=== PATIENT | female | born 2005 | race Caucasian/White ===

== ENCOUNTER 2024-12-15 13:55 | Outpatient (AMB) | payer BC, SELFPAY ==
--- NOTE | 2024-12-15 14:04 | A.OFFPC_ITS ---
Vital Signs 12/15/24 14:11 Height 5 ft 10 in Weight 194 lb 2 oz BMI 27.9 BP 110/80 Blood Pressure Location Lt brachial Position Sitting Pulse 91 Pulse Source Pulse Oximeter Temp 98.6 F Temp Source Temporal Artery Scan Pulse Oximetry (%) 98 Oxygen Delivery Method Room Air Intake Visit Reasons: New Appt New Patient requesitng an PE Intake Note: Bernie presents in the office today to establish care. Allergies No Known Allergies Allergy (Verified 12/15/24 14:07) Tobacco use date assessed: 12/15/24 Dental Screening Dental Screen Date: 12/15/24 Did you have a dental visit in the last 12 months?: Yes Did you have a dental problem in the last 6 months where you did not have access to dental care?: No Was dental information given to patient?: Patient has dentist HPI HPI Comments History of Present Illness Details 19-year-old female with a past medical h istory of ADHD presents to establish care. She requests a physical exam. She is engaged. She is graduating from [employer] with a degree in music education tomorrow. We received records from Pediatric associates. Last Tdap was 02/16/2014. 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 She is on the oral contraceptive pill. Patient was seen at her [facility] several times since June of 2024 for evaluation of a cough. It started last January when she had a cold and never went away. It is occasionally productive but mostly dry. Endorses wheezing and SOB and cough with exercise. Denies hemoptysis. Nonsmoker. No pets at home. Denies known seasonal allergens. She is exposed to secondhand smoke at her fiancee's parent's house when she is there. Patient says symptoms are better than last summer. No nocturnal awakenings due to respiratory symptoms. Albuterol temporarily alleviated symptoms, but she does not remember where she placed the inhaler that was prescribed by the health clinic. Denies previous diagnosis of asthma or chronic lung disease. ROS: Constitutional: No unexplained weight loss, fever, chills, fatigue or night sw eats. Eyes: No vision changes, blurry vision, double vision, eye pain, eye redness, eye discharge. ENT: No hearing loss, sneezing, congestion, runny nose or sore throat. Respiratory: see HPI Cardiovascular: No chest pain, chest pressure or chest discomfort. No palpitations or pedal edema. Gastrointestinal: No anorexia, nausea, vomiting or diarrhea. No abdominal pain or blood in stool. Genitourinary: No dysuria, hematuria, urinary frequency. Neurologic: No headache, dizziness, syncope, unilateral weakness, ataxia, numbness or tingling in the extremities. Musculoskeletal: No muscle pain, back pain, joint pain or swelling. Hematologic/Lymphatics: No bleeding or bruising. No painful lymph nodes. Skin: No rash or itching. Endocrine: No cold or heat intolerance. No polyuria or polydipsia. Psychiatric: Denies depression. No SI/HI. Physical exam: Constitutional: Alert, in no distress. Head: Normocephalic. Eyes: Pupils are equal, round and reactive to light. Extraocular muscles intact. Ear, Nose and Throat: Canals clear. TMs normal. Normal nasal mucosa. No nasal discharge. No oral lesions. Neck: Supple, Full range of motion. No lymphadenopathy. No palpable thyroid masses. Respiratory: Clear to auscultation. Cardiovascular: S1 S2 regular. No murmurs. Gastrointestinal: Abdomen soft, non-tender, non-distended. Normal bowel sounds. No palpable masses. Neurologic: No focal neurological deficits. Symmetric patellar reflexes. Moves all extremities spontaneously. Sensation intact bilaterally. Skin: No rashes or lesions. Musculoskeletal: No gross deformities. Normal range of motion. Extremities: Warm and well perfused. No clubbing, cyanosis or edema. 3+ peripheral pulses bilaterally. 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 1. Little interest or pleasure in doing things: not at all 2. Feeling down, depressed, or hopeless: several days 3. Trouble falling or staying asleep, or sleeping too much: more than half the days 4. Feeling tired or having little energy: several days 5. Poor appetite or overeating: not at all 6. Feeling bad about yourself - or that you are a failure or have let yourself or your family down: not at all 7. Trouble concentrating on things, such as reading the newspaper or watching television: more than half the days 8. Moving or speaking so slowly that other people could have noticed. Or the opposite - being so fidgety or restless that you have been moving around a lot more than usual: several days 9. Thoughts that you would be better off or of hurting yourself in some way: not at all Total score: 7 Depression Screening Interpretation: Positive Depression Screening Follow-up: Existing condition and Other (Not interested in ADHD meds) Depression Screening Done: Yes 31567 - PHQ-9 Billing: Yes Source: Developed by Drs. Sukhjinder Woods, Nelda Mcneill, Griffin Solis and colleagues, with an educational daniela from [employer]. Thrive Questionnaire Date Thrive assessed: 12/15/24 I am a: Patient What is your living situation today?: I have a steady place to live Within the past 12 months, did the food you bought not last and you didn't have the money to get more?: Never true Within the past 12 months, did you worry whether your food would run out before you got money to buy more?: Never true Do you have trouble paying for medicines?: No Do you have trouble getting transportation to medical appointments?: No Do you have trouble paying your heating and electricity bill?: No Do you have trouble taking care of your child, family member or friend?: No Do you have trouble with day-to-day activities such as bathing, preparing meals, shopping, managing finances, etc.?: No Are you currently unemployed and looking for a job?: No Are you interested in more education?: Yes Please select the resources that you would like help with: None Currently or been in a relationship where the following occur: No concerns reported THRIVE Score: 0 AUDIT C Alcohol Use Questionnaire (AUDIT-C) 1. How often do you have a drink containing alcohol?: 2-4 times a month 2. How many drinks containing alcohol do you have on a typical day when you are drinking?: 1 or 2 3. How often do you have six or more drinks on one occasion?: Less than monthly Total Score: 3 Score Reviewed/Action Taken: No EDIN-7 AMB Questionnaire EDIN-7 Date EDIN - 7 assessed: 12/15/24 Feeling nervous, anxious, or on edge: 2 = More than half the days Not being able to stop or control worryin = Several days Worrying too much about different things: 2 = More than half the days Trouble relaxin = Several days Being so restless that it is hard to sit still: 1 = Several days Becoming easily annoyed or irritable: 2 = More than half the days Feeling afraid as if something awful might happen: 1 = Several days Total EDIN-7 score (0-4 normal; 5-9 mild; 10-14 moderate; 15-21 severe): 10 Source: Developed by Drs. Sukhjinder Woods, Nelda Mcneill, Griffin Solis and colleagues, with an educational daniela from [employer]. EDIN-7 Assessment Billing EDIN-7 Assessment Tool: EDIN-7 Assessment 49522 Physical exam (Primary Care) Vital Signs: Last Vital Signs Temp 98.6 F 12/15/24 14:11 Pulse 91 12/15/24 14:11 BP 110/80 12/15/24 14:11 Pulse Ox 98 12/15/24 14:11 Oxygen Delivery Method Room Air 12/15/24 14:11 BMI result Body Mass Index 27.9 Tobacco/Smoking Status: Tobacco use Status Tobacco use date assessed 12/15/24 12/15/24 14:13 Patient Tobacco Use Status Current everyday Tobacco 12/15/24 14:13 e-Cigarette/Vaping Use Never Used 12/15/24 14:13 PHQ-9: PHQ-9 Score PHQ-9: Total score 7 12/15/24 14:13 Depression Screening Interpretation: Positive Depression Screening Follow-up: Existing condition and Other (Not interested in ADHD meds) Thrive Assessment: Date of Thrive Assessment Date Thrive assessed 12/15/24 12/15/24 14:13 Currently or been in a relationship where the following occur: No concerns reported Coding Level of Care Code New Pt Prev Care 18-39yr(98647 Diagnoses Routine physical examination Z00.00 Cough R05.9 Additional Codes EDIN-7 Assessment Billing - EDIN-7 Assessment Tool: EDIN-7 Assessment 01414 ([id number]) PHQ-9 - 80644 - PHQ-9 Billing: Yes ([id number]) Assessment & Plan Assessment & Plan (1) Routine physical examination: Code(s): Z00.00 - Encounter for general adult medical examination without abnormal findings Category: Medical Plan: Patient is seen today for a routine physical. As part of this visit we reviewed the following issues, which are considered and essential part of preventative health in this age group: - Breast Cancer screening - Annual Bindery Machine Operator exam - Blood pressure screening annually - Cholesterol screening - Osteoporosis prevention including calcium/vitamin D intake, weight bearing exercise & smoking cessation - Nutritional and exercise counseling - Counseling of injury prevention including fire prevention, smoke alarms and seat belt usage - Screening for depression - Prevention of and/or testing for infectious diseases - declined - Education about skin cancer - Recommendations about immunizations - Recommendation of an eye exam - Screening for substance abuse - Genetic cancer risk screening (2) Cough: Code(s): R05.9 - Cough, unspecified Category: Medical Plan: Prescribed albuterol 2 puffs every 4 hours as needed for coughing, wheezing and shortness of breath and 15 minutes prior to physical exertion. Advised patient to keep track of how often she requires it and how often she has symptomatic days. Check chest x-ray and PFT. Consider ICS depending on symptom burden, albuterol requirement and test results. Call if symptoms worsen in the meantime. Plan Follow up in 6 weeks. Orders: Orders Lipid Panel Today E78.5 - Hyperlipidemia, unspecified, Z00.00 - Encounter for general adult medical examination without abnormal findings Complete Blood Count no Diff Today Z00.00 - Encounter for general adult medical examination without abnormal findings Comprehensive Met. Panel Today Z00.00 - Encounter for general adult medical examination without abnormal findings PFT pulmonary function test Today R05.9 - Cough, unspecified XR chest 2V Today R05.9 - Cough, unspecified Medications: New albuterol sulfate 90 mcg/actuation 2 inhalations inhalation .every 4 hours 30 days PRN 8.5 grams 0RF shortness of breath or wheezing or coughing Patient Instructions: Please return for fasting blood work at your earliest convenience. You can have this done at [facility] along with the chest x-ray the day. Please keep try to keep track of the frequency of your asthma symptoms (cough, wheezing, shortness of breath) and how often you need to take albuterol.
[2024-12-15 14:11] VITALS: BP 110/80; PULSE 91; TEMP 37; O2SAT 98; BMI 27.9
== END 2024-12-15 14:34 | disposition home or self-care (01) ==
LOC: HO.HMCFM 13:55
PROVIDERS: Visit Provider Physician Assistant Medical
DX: Z00.00 Encounter for general adult medical examination without abnormal findings (principal); R05.9 Cough, unspecified

== ENCOUNTER → 2024-12-15 13:55 | Outpatient (BNVA) | payer BC, SELFPAY | PROVIDERS: Visit Provider Physician Assistant Medical | DX: Z00.00 Encounter for general adult medical examination without abnormal findings (principal); F90.9 Attention-deficit hyperactivity disorder, unspecified type; R05.9 Cough, unspecified; E78.5 Hyperlipidemia, unspecified | CPT/HCPCS: 96127 ==

== ENCOUNTER 2024-12-20 12:17 | Outpatient (REF) | payer BC, SELFPAY ==
--- NOTE | ~2024-12-20 | XR_ITS ---
EXAMINATION: XR CHEST CLINICAL INFORMATION: R05.9 - Cough, unspecified COMPARISON: None available. TECHNIQUE: 2 views of the chest were obtained. FINDINGS: No consolidation, pleural effusion or pneumothorax. No hyperinflation. Cardiomediastinal silhouette size is normal. Mild S-shaped curvature of the thoracic spine. XR/XR chest 2V IMPRESSION: No acute airspace disease. Negative x-ray. Electronically signed by: Dane Buck MD 12/20/2024 12:46 PM EDT
--- NOTE | 2024-12-20 13:05 | PFT_ITS ---
Flows: FEV1: 101% of predicted at 4.07 L FVC: 114 % of predicted at 5.31 L FEV1/FVC: 77 % Bronchodilator response: Present in small to medium airways only Volumes: Total lung capacity: 107 % of predicted at 6.48 L Residual volume: 82 % of predicted at 1.09 L Slow vital capacity: 118 % of predicted at 5.39 L Expiratory reserve volume: 114 % of predicted at 1.84 L Diffusion capacity: Normal Impression: No obstructive or restrictive ventilatory defect. Bronchodilator response is present in small to medium airways only. MTDD
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
--- OUTSIDE RECORDS SUMMARY | 2024-12-20 13:21 | XMS_ITS | Encounter Summary ---
Author Organization [facility] Address [address] [place], [place] [id number] Phone Care Team Providers Care Director Web Name Role Phone Sukhjinder Nunez MD Primary Care Provider [phone] Encounter Details Date Type Department Care Team (Late st Contact Info) Description 12/20/2017 Conversion Encounter [facility] [address] [place] [address] Sukhjinder Nunez MD [address] [place] [address] Social History Tobacco Use Types Packs/Day Years Used Date Smoking Tobacco: Never Assessed Comments Unknown Sex and Gender Information Value Date Recorded Sex Assigned at Not on file Legal Sex Female 6:13 PM EDT Gender Identity Not on file Sexual Orientation Bisexual 06/03/2021 12 :24 PM EDT documented as of this encounter Plan of Treatment Not on file documented as of this encounter Visit Diagnoses Not on filedocumented in this encounter Care Teams Director Web Relationship Specialty Start Date End Date Sukhjinder Nunez MD [address] [place] [address] PCP - General Pediatrics 03/29/18 09/13/24 documented as of this encounter
[2024-12-20 13:43] VITALS: PULSE 71; O2SAT 99
== END 2024-12-20 12:18 | disposition home or self-care (01) ==
LOC: HO.RESP 12:17
PROVIDERS: PCP Physician Assistant Medical; Visit Provider Physician Assistant Medical
DX: R05.9 Cough, unspecified (principal)
CPT/HCPCS: 71046; 94010; 94640; 94727; 94729

== ENCOUNTER → 2024-12-20 12:23 | Outpatient (BNV) | payer BC, SELFPAY | PROVIDERS: PCP Physician Assistant Medical; Visit Provider Radiology Diagnostic Radiology | DX: R05.9 Cough, unspecified (principal) | CPT/HCPCS: 71046 ==

== ENCOUNTER → 2024-12-20 13:05 | Outpatient (BNV) | payer BC, SELFPAY | PROVIDERS: PCP Physician Assistant Medical; Visit Provider Internal Medicine Pulmonary Disease | DX: R05.9 Cough, unspecified (principal) | CPT/HCPCS: 94060; 94727; 94729 ==

== ENCOUNTER 2024-12-22 11:59 | Outpatient (AMB) | payer BC, SELFPAY ==
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
--- OUTSIDE RECORDS SUMMARY | 2024-12-22 12:25 | XMS_ITS | Encounter Summary ---
Author Organization [facility] Address [address] [place], [place] [id number] Phone Care Team Providers Care Civil Engineer'S Aide Name Role Phone Sukhjinder Nunez MD Primary Care Provider [phone] Encounter Details Date Type Department Care Team (Late st Contact Info) Description 12/20/2017 Conversion [facility]counter [facility] [address] [place] [address] Sukhjinder Nunez MD [address] [place] [address] Social History Tobacco Use Types Packs/Day Years [...] on filedocumented in this encounter Care Teams Civil Engineer'S Aide Relationship Specialty Start Date End Date Sukhjinder Nunez MD [address] [place] [address] PCP - General Pediatrics 03/29/18 09/13/24 documented as of this encounter
--- NOTE | 2024-12-22 12:28 | AM.OFFVISNUR ---
Intake Visit Reasons: nurse visit Tdap Allergies No Known Allergies Allergy (Verified 12/15/24 14:07) Immunizations Boostrix Tdap 2.5 Lf unit-8 mcg-5 Lf/0.5 mL intramuscular syringe Performing Provider: ALICIA Kathleen Performing Location: [facility] Administered by: Ella Allison RN on 12/22/24 12:28 Dose Route Admin Location Dispensed Lot Number Expiration Date [facility] Biometrics Head 0.5 mL IM Right Deltoid 0.5 mL [id number] 03/28/27 [id number] Pipeline VIS Given Date VIS Provided VIS Publication Date 12/22/24 Single Vaccine 21 Eligibility Eligibility Date Funding Source Not [facility] Eligible 12/22/24 Private Assessment & Plan Assessment & Plan Orders: Orders TDaP Immunization Today Z23 - Encounter for immunization Medications: New Boostrix Tdap (diphth,pertus(acell),tetanus) 0.5 mL IM ONCE 0.5 mL 0RF NS Z23 - Encounter for immunization Coding
== END 2024-12-22 12:28 | disposition home or self-care (01) ==
LOC: HO.HMCFM 12:00
PROVIDERS: Visit Provider Physician Assistant Medical
DX: Z23 Encounter for immunization (principal)

== ENCOUNTER → 2024-12-22 11:59 | Outpatient (BNVA) | payer BC, SELFPAY | PROVIDERS: Visit Provider Physician Assistant Medical | DX: Z23 Encounter for immunization (principal) | CPT/HCPCS: 90471; 90715 ==

== ENCOUNTER 2025-01-26 13:40 | Outpatient (AMB) | payer BC, SELFPAY ==
--- NOTE | 2025-01-26 13:44 | MHC.PC.OV ---
Vital Signs 01/26/25 13:47 Height 5 ft 10 in Weight 196 lb 8 oz BMI 28.2 BP 110/72 Blood Pressure Location Rt brachial Position Sitting Pulse 90 Pulse Source Pulse Oximeter Temp 98.2 F Pulse Oximetry (%) 97 Oxygen Delivery Method Room Air Intake Visit Reasons: follow up cough Intake Note: Prudence presents in the office today to follow up on her cough. Allergies No Known Allergies Allergy (Verified 01/26/25 13:45) Tobacco use date assessed: 01/26/25 Dental Screening Dental Screen Date: 01/26/25 Did you have a dental visit in the last 12 months?: Yes Did you have a dental problem in the last 6 months where you did not have access to dental care?: No Was dental information given to patient?: Patient has dentist HPI HPI Comments History of Present Illness Details 19-year-old female with a past medical history of ADHD presents for follow up. Her PFT is suggestive of asthma. Chest x-ray 12/20/2024 normal. She is using her albuterol inhaler 10-15 times per week for symptoms. Cough is triggered by cigarette smoke, physical activity and laughing. No interval ER visits or systemic steroids. Denies nocturnal awakenings. ROS: Constitutional: No unexplained weight loss, fever, chills, fatigue Respiratory: see HPI Cardiovascular: No chest pain, chest pressure or chest discomfort. No palpitations or pedal edema. Physical exam: Constitutional: Alert, in no distress. Respiratory: Clear to auscultation. Cardiovascular: S1 S2 regular. No murmurs. Extremities: Warm and well perfused. No clubbing, cyanosis or edema. 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 [employer] Current occupational exposures/hazards: No Cognitive needs: No Hearing needs: No Vision needs: No Questionnaire Thrive Questionnaire Date Thrive assessed: 12/08/24 I am a: Patient What is your living situation today?: I have a steady place to live Within the past 12 months, did the food you bought not last and you didn't have the money to get more?: Never true Within the past 12 months, did you worry whether your food would run out before you got money to buy more?: Never true Do you have trouble paying for medicines?: No Do you have trouble getting transportation to medical appointments?: No Do you have trouble paying your heating and electricity bill?: No Do you have trouble taking care of your child, family member or friend?: No Do you have trouble with day-to-day activities such as bathing, preparing meals, shopping, managing finances, etc.?: No Are you currently unemployed and looking for a job?: No Are you interested in more education?: Yes Please select the resources that you would like help with: None Currently or been in a relationship where the following occur: No concerns reported THRIVE Score: 0 EDIN-7 AMB Questionnaire EDIN-7 Date EDIN - 7 assessed: 12/15/24 Source: Developed by Drs. Sukhjinder Woods, Nelda Mcneill, Griffin Solis and colleagues, with an educational daniela from [employer]. Physical exam (Primary Care) Vital Signs: Last Vital Signs Temp 98.2 F 01/26/25 13:47 Pulse 90 01/26/25 13:47 BP 110/72 01/26/25 13:47 Pulse Ox 97 01/26/25 13:47 Oxygen Delivery Method Room Air 01/26/25 13:47 BMI result Body Mass Index 28.2 Tobacco/Smoking Status: Tobacco use Status Tobacco use date assessed 01/26/25 01/26/25 13:46 Patient Tobacco Use Status Never used Tobacco 01/26/25 13:46 e-Cigarette/Vaping Use Never Used 01/26/25 13:46 Thrive Assessment: Date of Thrive Assessment Date Thrive assessed 12/08/24 01/26/25 13:46 Currently or been in a relationship where the following occur: No concerns reported Coding Level of Care Code Est Pt Level 3 (57829) Complex EM visit Add On G2211 Diagnoses Asthma, mild persistent J45.30 Assessment & Plan Assessment & Plan (1) Asthma, mild persistent: Code(s): J45.30 - Mild persistent asthma, uncomplicated Category: Medical Plan: Start Arnuity 1 inhalation daily. Gargle and rinse mouth after use. We discussed side effects of inhaled corticosteroids. Recommended supplementation with a multivitamin that contains calcium and vitamin-D. Continue albuterol 2 puffs every 4 hours as needed for cough, wheezing and shortness of breath. Follow up in 6 weeks for re-evaluation. Instructed to call if she does not received the inhaler from the pharmacy. Medications: New fluticasone furoate 100 mcg/actuation (Arnuity Ellipta) 1 inh inhalation Q24H 30 ea 5RF Refilled albuterol sulfate 90 mcg/actuation 2 inhalations inhalation .every 4 hours PRN 8.5 grams 2RF shortness of breath or wheezing or coughing 30 days
[2025-01-26 13:47] VITALS: BP 110/72; PULSE 90; TEMP 36.8; O2SAT 97; BMI 28.2
--- OUTSIDE RECORDS SUMMARY | 2025-01-26 16:32 | XMS_ITS | Continuity of Care Document ---
Author Organization [facility],, GARTH RUSSO MD Address [address] [place] [address] Care Team Providers Care Private Investigator Surveillance Name Role Phone LAWRENCE CARMICHAEL Primary Care Provider Assessment No assessment recorded. Plan of Treatment Reminders Order Date Submit Date Provider Last Modified By Organization Details Last Modified Time Details Appointments None recorded. Lab cytology report, thin prep, smear or scraping, cervical or vaginal 2024 025 [facility] (Centralized Electronic Ordering - All Locations), Patient Can Go To The Location Of Their Choice, [id number] 14:16:18 Referral None recorded. Procedures None recorded. Surgeries None recorded. Imaging None recorded. Medication Orders Aviane 0.1 mg-20 mcg tablet 2024 025 [id number], [address], [place], [address], 11:09:04 Patient TargetsNo targets recorded. Patient Instructions Encounter Date Encounter Id Patient Instructions Last Modified By Organization Details Last Modified Time 01/23/2025 [id number] learning about healthy weight Not available 01/23/2025 11:09:02 They are here fo r annual, doing well on the OCP, elects to continue. 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 _ Note from 2023: They are here for annual, same partner for 9 months, doing well. No vaginal intercourse, no risks for . Still on OCP for regulation of cycles with good results. ___ note from 2022: They are here for annual, last partner was a trans woman, however they are not sexually active at this time. Doing well on this OCP and elects to continue. She appears to be doing well. Monthly self breast exam was taught, and stressed, and is advised to call if she discovers any new mass in the breast. We reviewed the interaction of the OCP with antibiotics. We discussed the need to use a condom during antibiotic use and also for a minimum of three weeks following the use of antibiotics. We discused interactions with some herbal and OTC meds, such as [facility] Possible side effects, and the stated risk of one in 10,000 to develop a blood clot/ DVT/PE were also discussed. Safe sex was stressed. All questions answered, rx to be called in to pharmacy. Not available 01/23/2025 11:09:18 Reason for Referral None Reported. Medical Equipment None Reported. Allergies No known drug allergies Medications Name Sig Start Date Stop Date Status Note LastModified by Organization Details LastModified Time Aviane 0.1 mg-20 mcg tablet Take 1 tablet every day by oral route for 84 days. 2024 active Not Available Not Available Not Avai lable albuterol sulfate HFA 90 mcg/actuati on aerosol inhaler INHALE 2 PUFFS INTO LUNGS EVERY 4 HOURS NEEDED FOR SHORTNESS OF BREATH/WH EEZE/ COUGH FOR 30 DAYS active Not Available Not Available No t Available methylpheni date ER 18 mg tablet,exte nded release 24 hr TAKE 1 TABLET BY MOUTH EVERY DAY IN THE MORNING 01/12 completed Not Available Not Available Not Available Clair Carrasco [facility] spacer FOR USE WITH METERED-D OSE INHALER active Not Available Not Available No t Available Vitals Date Recorded Body weight Body mass index (BMI) Body height Heart rate Systolic blood pressure Diastolic blood pressure Provider Name and Address Organization Details Last Updated DateTime 5 06999.7 g 29.1 kg/m2 175.26 cm 85 /min 120 mm[Hg] 79 mm[Hg] Blanca Mckeon in [facility], 10:41:08 Social History Question Answer Notes LastModified by Organizat ion Details LastModified Time Tobacco Smoking Status Never Smoker Blanca [facility] Hart in [facility], 12/31/2021 13:49:36 How Many Years Have You Consumed Alcohol? 1 Information not available 01/06/2023 What Is Your Level Of Caffeine Consumption? Moderate Information not available 12/31/2021 In The 14 Days Before Symptom Onset, Have You Had Close Contact With A Laboratory-confir med COVID-19 While That Case Was Ill? No Information not available 12/31/2021 In The 14 Days Before Symptom Onset, Have You Had Close Contact With A Person Who Is Under Investigation For COVID-19 While That Person Was Ill? No Information not available 12/31/2021 Have You Been To An Area Known To Be High Risk For COVID-19? No Information not available 12/31/2021 Which Illicit Or Recreational Drugs Have You Used? Edibles Information not available 12/31/2021 What Is The Highest Grade Or Level Of School You Have Completed Or The Highest Degree You Have Received? LC71451-2 Information not available 12/31/2021 Who Is Your Employer? [employer] Information not available 01/23/2025 Are There Any Guns Present In Your Home? No Information not available 12/31/2021 How Many Years Have You Used Illicit Or Recreational Drugs? 1 Information not available 12/31/2021 To Which Gender Do You Self-identify? Gender Queer Information not available 12/31/2021 What Was The Date Of Your Most Recent Tobacco Screening? 01/23/2025 Information not available 01/23/2025 What Is Your Relationship Status? Single Information not available 12/31/2021 Are You Sexually Active? Yes But Not Since Last May Information not available 12/31/2021 How Many Days In The Past Year Have You Consumed 4 Or More Drinks? 0 Information no t available 01/06/2023 Sex: Female Functional Status Question Answer Note LastModified by Organizat ion Details LastModified Time Do you use any illicit or recreational drugs? Yes Information not available 12/31/2021 Do you or have you ever used any other forms of tobacco or nicotine? No Information not available 12/31/2021 What is your level of alcohol consumption? Occasional Information not available 01/06/2023 Are you currently employed? 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 Information not available 01/23/2025 What is your exercise level? Moderate Information not available 12/31/2021 Mental Status Question Answer Note LastModified by Organization D etails LastModified Time Do you feel stressed (tense, restless, nervous, or anxious, or unable to sleep at night)? [id number] Information not available 01/06/2023 Family History Relationship Description Onset Age of this Age Resolved Age Notes LastModified by Organization Details LastModified Time Paternal Grandmother Malignant neoplasm of ovary 45 46 [email or web address] Not available 2021 13:46:41 Paternal Aunt Malignant neoplasm of ovary 48 48 great aunt but father had no sister .. [email or web address] Not available 12/31/2021 13:47:46 Medical History Condition Response Anesthesia complications N High Blood Pressure N Candidate for MyRisk panel N Autoimmune Condition N Lung Disease N Depression N Defects or Inherited Disease N History of Ovarian Cancer N BRCA testing in past N Anxiety Disorder N Arthritis N Infertility N History of Cancer N Endometriosis N Thyroid Problems N Kidney or Bladder Problems N GI Problems N Anemia N History of Breast Cancer N EUSEBIA exposure N Osteopenia N Psychiatric Illness N Diabetes N Headaches or Migraines N Asthma N Hepatitis N Heart Disease N Hypertension N Osteoporosis N Gynecological History Statement/Question Response Flow Moderate Date of LMP 01/09/2025 Frequency of Cycle (Q days) 28 Menses Monthly N Duration of Flow (days) 5 Age at Menarche 10 Current Control Method BCPs Obstetrics History GPAL:G 0 P 0 0 0 0 Immunizations Vaccine Type Date Status Note Provider Nam e and Address Organization Details Recorded Time meningococcal B, OMV 1 completed Blanca Meczywor null, [place] [facility], 01/23/2025 10:42:06 COVID-19, mRNA, LNP-S, PF, 30 mcg/0.3 mL dose 1 completed Blanca Meczywor null, [place] - [facility], 01/23/2025 10:42:06 COVID-19, mRNA, LNP-S, PF, 30 mcg/0.3 mL dose 1 completed Blanca Meczywor null, [place] - [facility], 01/23/2025 10:42:06 COVID-19, mRNA, LNP-S, PF, 30 mcg/0.3 mL dose 1 completed Blanca Meczywor null, [place] - [facility], 01/23/2025 10:42:06 Tdap 4 completed Blanca Meczywor null, [place] - [facility], 01/23/2025 10:42:06 Influenza, split virus, trivalent, preservative 6 completed Blanca Meczywor [place], [place] [facility], 01/23/2025 10:42:06 HPV, quadrivalent 5 completed Blanca Meczywor [place], [place] [facility], 01/23/2025 10:42:06 HPV, quadrivalent 4 completed Blanca Meczywor null, [place] [facility], 01/23/2025 10:42:06 HPV, quadrivalent 4 completed Blanca Meczywor null, [place] [facility], 01/23/2025 10:42:06 Hep A, ped/adol, 2 dose 7 completed Blanca Meczywor null, [place] - [facility], 01/23/2025 10:42:06 Hep A, ped/adol, 2 dose 8 completed Blanca Meczywor [place], [place] [facility], 01/23/2025 10:42:06 meningococcal MCV4P 4 completed Blanca Meczywor [place], [place] [facility], 01/23/2025 10:42:06 meningococcal MCV4P 9 completed Blanca Meczywor null, [place] [facility], 01/23/2025 10:42:06 Influenza, split virus, quadrivalent, PF 8 completed Blanca Meczywor [place] [facility], 01/23/2025 10:42:06 Influenza, split virus, quadrivalent, PF 0 completed Blanca Meczywor [place], [place] - [facility], 01/23/2025 10:42:06 Influenza, split virus, quadrivalent, PF 6 completed Blanca Meczywor null, [place] - [facility], 01/23/2025 10:42:06 Influenza, split virus, quadrivalent, PF 1 completed Blanca Meczywor null, [place] - [facility], 01/23/2025 10:42:06 Past Encounters Encounter ID Performer Location Encounter Start Date Encounter Closed Date Diagnosis/Indication Diagnosis SNOMED-CT Code Diagnosis ICD10 Code Diagnosis Note [id number] MD GARTH Addison MD [address] [facility] [address] [place] [address] 01/23/2025 10:36:51 01/23/2025 15:27:20 Specialized medical examination 55351819 Z01.419 Venereal d isease screening 562736232 Z11.3 Health Concerns Section Related Observation LastModified by Organization Detai ls LastModified Time None Recorded Concern Status LastModified by Organization Details LastModified Time None Recorded Payers Encounter Date Sequence Insurance Name Policy Number Policy Dill Covered Member ID Dill Member ID Guarantor Name 01/23/2025 1 [facility] [id number] Adali Weiss [id number] Prudence Weiss Notes Date Note Type Note Provider Name and Address Organization Details Recorded Time 01/23/2025 text/html They are here fo r annual, doing well on the OCP, elects to continue. 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 _ Note from 2023: They are here for annual, same partner for 9 months, doing well. No vaginal intercourse, no risks for . Still on OCP for regulation of cycles with good results. note from 2022: They are here for annual, last partner was a trans woman, however they are not sexually active at this time. Doing well on this OCP and elects to continue. Garth Russo MD [address] [place] [address],[address], [place], [id number], [place] - [facility], 01/23/2025 11:09:32 OBGyn Episode No OBEpisode recorded.
== END 2025-01-26 14:17 | disposition home or self-care (01) ==
LOC: HO.HMCFM 13:41
PROVIDERS: Visit Provider Physician Assistant Medical
DX: J45.30 Mild persistent asthma, uncomplicated (principal)

== ENCOUNTER → 2025-01-26 13:40 | Outpatient (BNVA) | payer BC, SELFPAY | PROVIDERS: Visit Provider Physician Assistant Medical | DX: Z13.89 Encounter for screening for other disorder (principal) ==

== ENCOUNTER 2025-02-27 13:39 | Outpatient (AMB) | payer BC, SELFPAY ==
--- NOTE | 2025-02-27 13:48 | A.OFFPC_ITS ---
Vital Signs 02/27/25 13:50 Height 5 ft 10 in Weight 202 lb BMI 29.0 BP 120/68 Blood Pressure Location Rt brachial Position Sitting Pulse 81 Pulse Source Pulse Oximeter Temp 98.6 F Temp Source Temporal Artery Scan Pulse Oximetry (%) 98 Oxygen Delivery Method Room Air Intake Visit Reasons: recheck asthma Intake Note: Geovanna presents in the office today for a recheck of her asthma. Allergies No Known Allergies Allergy (Verified 02/27/25 13:49) Tobacco use date assessed: 02/27/25 Dental Screening Dental Screen Date: 02/27/25 Did you have a dental visit in the last 12 months?: Yes Did you have a dental problem in the last 6 months where you did not have access to dental care?: No Was dental information given to patient?: Patient has dentist HPI HPI Comments History of Present Illness Details 19-year-old female with a past medical h istory of asthma and ADHD presenting for an asthma medication check. Her PFT was suggestive of asthma. Chest x-ray 12/20/2024 normal. She initially reported using her albuterol inhaler 10-15 times per week for symptoms. Cough is triggered by cigarette smoke, physical activity and laughing. No interval ER visits or systemic steroids. Taking Pulmicort 90 mcg 1 puff twice daily. Endorses reduced albuterol requirement. She is still using it more than 2 through 3 times per week. Denies nocturnal awakenings. Denies side effects on the medicine. She is taking a multivitamin that contains calcium and vitamin-D. ROS: Constitutional: No unexplained weight loss, fever, chills, fatigue Respiratory: see HPI Cardiovascular: No chest pain, chest pressure or chest discomfort. No palpitations or pedal edema. Physical exam: Constitutional: Alert, in no distress. Respiratory: Clear to auscultation. Mouth/throat: Normal Cardiovascular: S1 S2 regular. No murmurs. Extremities: Warm and well perfused. No clubbing, cyanosis or edema. 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 [employer] Current occupational exposures/hazards: No Cognitive needs: No Hearing needs: No Vision needs: No Questionnaire Thrive Questionnaire Date Thrive assessed: 12/08/24 I am a: Patient What is your living situation today?: I have a steady place to live Within the past 12 months, did the food you bought not last and you didn't have the money to get more?: Never true Within the past 12 months, did you worry whether your food would run out before you got money to buy more?: Never true Do you have trouble paying for medicines?: No Do you have trouble getting transportation to medical appointments?: No Do you have trouble paying your heating and electricity bill?: No Do you have trouble taking care of your child, family member or friend?: No Do you have trouble with day-to-day activities such as bathing, preparing meals, shopping, managing finances, etc.?: No Are you currently unemployed and looking for a job?: No Are you interested in more education?: Yes Please select the resources that you would like help with: None Currently or been in a relationship where the following occur: No concerns reported THRIVE Score: 0 EDIN-7 AMB Questionnaire EDIN-7 Date EDIN - 7 assessed: 12/15/24 Source: Developed by Drs. Sukhjinder Woods, Nelda Mcneill, Griffin Solis and colleagues, with an educational daniela from [employer]. Physical exam (Primary Care) Vital Signs: Last Vital Signs Temp 98.6 F 02/27/25 13:50 Pulse 81 02/27/25 13:50 BP 120/68 02/27/25 13:50 Pulse Ox 98 02/27/25 13:50 Oxygen Delivery Method Room Air 02/27/25 13:50 BMI result Body Mass Index 29.0 Tobacco/Smoking Status: Tobacco use Status Tobacco use date assessed 02/27/25 02/27/25 13:53 Patient Tobacco Use Status Never used Tobacco 02/27/25 13:50 e-Cigarette/Vaping Use Never Used 02/27/25 13:50 Thrive Assessment: Date of Thrive Assessment Date Thrive assessed 12/08/24 02/27/25 13:49 Currently or been in a relationship where the following occur: No concerns reported Coding Level of Care Code Est Pt Level 3 (33972) Complex EM visit Add On G2211 Diagnoses Mild persistent asthma without complication J45.30 Asthma complication type: uncomplicated Assessment & Plan Assessment & Plan (1) Asthma, mild persistent: Code(s): J45.30 - Mild persistent asthma, uncomplicated Category: Medical Qualifiers: Asthma complication type: uncomplicated Qualified Code(s): J45.30 - Mild persistent asthma, uncomplicated Plan: Increase Pulmicort to 180 mcg twice daily. Gargle and rinse mouth after use. We discussed side effects of inhaled corticosteroids. Recommended supplementation with a multivitamin that contains calcium and vitamin-D. Continue albuterol 2 puffs every 4 hours as needed for cough, wheezing and shortness of breath. Follow up in 8 weeks for re-evaluation. Instructed to call if she does not rece ived the inhaler from the pharmacy. Medications: New budesonide 180 mcg/actuation (Pulmicort Flexhaler) 1 inh inhalation BID 1 ea 3RF Discontinued budesonide 90 mcg/actuation (Pulmicort Flexhaler) Discontinued Reason: Doctor's Order 1 inh inhalation Q12H 30 days 1 ea 0RF
[2025-02-27 13:50] VITALS: BP 120/68; PULSE 81; TEMP 37; O2SAT 98; BMI 29.0
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
--- OUTSIDE RECORDS SUMMARY | 2025-02-27 14:20 | XMS_ITS | Data Portability ---
Author Organization [place] - [facility],, GARTH RUSSO MD Address [address] [address] Care Team Providers Care Gerentological Physiotherapist Name Role Phone LAWRENCE CARMICHAEL Primary Care Provider [phone] Assessment No assessment recorded. Plan of Treatment Reminders Order Date Submit Date Provider Last Modified By Organization Details Last Modified Time Details Appointments None recorded. Lab cytology report, thin prep, smear or scraping, cervical or vaginal 2024 025 JESSICA [facility] (Centralized Electronic Ordering - All Locations), Patient Can Go To The Location Of Their Choice, [id number] 5 14:16:18 cytology report, thin prep, smear or scraping, cervical or vaginal 2023 024 JESSICA [facility] (Centralized Electronic Ordering - All Locations), Patient Can Go To The Location Of Their Choice, [address] 4 12:12:40 pap test, thinprep, cervical 2022 023 [email or web address] [facility] (Centralized Electronic Ordering - All Locations), Patient Can Go To The Location Of Their Choice, [address] 3 07:33:40 chlamydia sp, culture, unspecifi ed specimen 2022 023 [email or web address] [facility] (Centralized Electronic Ordering - All Locations), Patient Can Go To The Location Of Their Choice, [address] 3 07:31:27 NG DNA, PCR, genital 2022 023 [email or web address] [facility] (Centralized Electronic Ordering - All Locations), Patient Can Go To The Location Of Their Choice, [id number] 3 07:31:27 pap test, thinprep, cervical 2021 022 [email or web address] [facility], Cytopathology Service, [address] [place] [address], [address], 2 08:23:36 chlamydia sp, culture, unspecifi ed specimen 2021 022 [email or web address] [facility], Cytopathology Service, [address] [place] [address], [address], 2 07:27:52 NG DNA, PCR, genital 2021 022 [email or web address] [facility], Cytopathology Service, [address] [place] [address], [address], 2 07:27:52 Referral None recorded. Procedures None recorded. Surgeries None recorded. Imaging None recorded. Medication Orders Aviane 0.1 mg-20 mcg tablet 2024 025 [facility]armacy #[id number], [address] [place], [address], 5 11:09:04 Sronyx 0.1 mg-20 mcg tablet 2023 024 [facility]/Pharmacy #[id number], [address] [place], [address], 4 11:53:33 Sronyx 0.1 mg-20 mcg tablet 2022 023 [facility]/Pharmacy #0838, [address] [place], [address], 3 13:56:48 Aviane 0.1 mg-20 mcg tablet 2021 022 [facility]/Pharmacy #0838, [address] [place], [address], 2 14:20:15 Patient TargetsNo targets recorded. Patient Instructions Encounter Date Encounter Id Patient Instructions Last Modified By Organization Details Last Modified Time 12/31/2021 [id number] combination cyn h control pills for teens: care instructions Not available 12/31/2021 14:18:53 pelvic exam for teens: care instructions Not available 12/31/2021 14:18:53 learning about healthy weight Not available 12/31/2021 14:18:53 combination cyn h control pills: care instructions Not available 12/31/2021 14:21:39 learning about control: combination pills Not available 12/31/2021 14:21:39 They are here as a new patient for annual exam, never had a pap previously. Not sexually active since last May. Bisexual, gender queer, gender non-nonconforming , though only has experience with males at this time. Gender fluid, pronouns are They/Them. Menses are sometimes every month, sometimes 4 to 6 months apart, since menarche. Desires control. They appears to be doing well. Monthly self breast exam was taught, and stressed, and is advised to call if she discovers any new mass in the breast. We discussed the Thursday start process for the OCP, that the pill will not be effective for the first month of use, and the interaction with antibiotics. We discussed the need to use a condom during antibiotic use and also for a minimum of three weeks following the use of antibiotics. We discused interactions with some herbal and OTC meds, such as [place] Dese[place]'s Wort. Possible side effects, and the stated risk of one in 10,000 to develop a blood clot/ DVT/PE were also discussed. All questions answered, rx to be called in to pharmacy. Not available 12/31/2021 14:19:37 01/06/2023 [id number] learning about healthy weight Not available 01/06/2023 13:56:46 They are here fo r annual, last partner was a trans woman, however they are not sexually active at this time. Doing well on this OCP and elects to continue. note from 2021: They are here as a new patient for annual exam, never had a pap previously. Not sexually active since last May. Bisexual, gender queer, gender non-nonconforming , though only has experience with males at this time. Gender fluid, pronouns are They/Them. Menses are sometimes every month, sometimes 4 to 6 months apart, since menarche. Desires control. We reviewed the interaction of the OCP [...] rx to be called in to pharmacy. She appears to be doing well. Monthly self breast exam was taught, and stressed, and is advised to call if she discovers any new mass in the breast. Not available 01/06/2023 13:57:09 01/13/2024 [id number] learning about healthy weight Not available 01/13/2024 11:52:25 They are here for annual, same partner for 9 months, doing well. No vaginal intercourse, no risks for . Still on OCP for regulation of cycles with good results. ___ note from 2022: They are here for annual, last partner was a trans woman, however they are not sexually active at this time. Doing well on this OCP and elects to continue. _ She appears to be doing well. . Monthly self breast exam was taught, and [...] be called in to pharmacy. Not available 01/13/2024 11:53:46 01/23/2025 [id number] learning about healthy weight Not available 01/23/2025 11:09:02 They are here fo r annual, doing well on the OCP, elects to continue. 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 Results Created Date Observation Date Name Description Value Unit Range Abnormal Flag Note LastModifiedBy Organization Detail LastModifiedTime 01/01/20 22 12/31/2021 GENER AL5CA SE [id number] Chlam ydia: NEGAT LACIE N. cindy auguste e: NEGAT LACIE Compl eted on 01-02 CLINI YARIEL INFOR MATSTEPHANIE N: Z11.3 SOURC E: ThinP rep Pap for CT/GC Gross Descr iptio n: ThinP rep Vial Recei catie. Physi abbens AYDEN GARCÍA M.D./ [phone] Not Available [facility], Cytopathology Service [address] [place], [address], 01/03/2022 09:22:50 01/01/20 22 12/31/2021 PAP1C ASE [id number] ThinP rep Pap, Image d: NEGAT LACIE FOR SQUAM OUS INTRA EPITH ELIAL LESIO N AND MALIG CALLIE . Mark Coyne r , CT( CP) (Case elect kelvin denise vamsi d 01 10 2022) ADEQU ACY: Satis facto ry Endoc ervic al/tr ansfo rmati on zone compo nent prese nt. SOURC E: ThinP rep Pap HPV IF Ascus : Refle x 16 and 18, Cervi yariel, Image d CLINI YARIEL INFOR MATIO N: HPV If Diagn osis of ASCUS . first pap, Z12.4 Not Available [facility], Cytopathology Service [address] [place], [address], 01/10/2022 13:31:17 01/07/[address]/GC AMPLI FIED PROBE C.trach.amp probe thin prep (neg) NEGAT LACIE No Chlam ydia Trach omati s RNA detec hector in this patie nt's sampl e (REFE RENCE RANGE /NORM AL VALUE : NOT DETEC HECTOR) Note: This test uses trans cript ion- media hector ampli ficat ion metho d to detec t rRNA from C. Trach omati s Not Available [facility] (Centralized Electronic Ordering - All Locations) Patient Can Go To The Location Of Their Choice, [id number] 2023 15:04:03 01/07/[address]/GC AMPLI FIED PROBE GC amplified probe thin prep (neg) NEGAT LACIE No Neiss eria Gonor rhoea e RNA detec hector in this patie nt's sampl e (REFE RENCE RANGE /NORM AL VALUE : NOT DETEC HECTOR) NOTE: This test uses trans cript ion-m ediat ed ampli ficat ion metho d to detec t rRNA from N.Vic orrho eae. A negat lacie resul t does not precl ude infec tion. In the case of a negat lacie urine resul t, testi ng of an endoc ervic al(fe male) or ureth ral (male ) speci men is recom adrian d if there is high clini yariel suspi cion of infec tion. Due to very high sensi tivit y of Nucle ic Acid Ampli ficat ion Test, false posit lacie resul ts may occur . There fore, speci men handl ing is extre todd impor tant. In patie nts in whom the disea se is unlik jorge, addit ional sampl e for testi ng shoul d be consi dered after an initi al posit lacie resul t. The perfo rmanc e marina cteri stics of this test have not been evalu ated in child remigio. The Aptim a Combo 2 assay is not inten ded for the evalu ation of suspe cted sexua l abuse or for other medic o-leg al indic ation s. The order ing provi bulmaro shoul d asses s if the patie nt had conse nsual sex witho ut risk of sexua l abuse . [facility] if neede d. Conta ct phone numbe r [phone]. Thera peuti c failu re or succe ss canno t be deter mined with the Aptim a Combo 2 assay since nucle ic acid may persi st follo wing appro priat e antim icrob ial thera py. The Cente rs for Disea se Contr ol and Preve ntion ([facility]) recom mends confi rmato ry retes ting using cultu re or a diffe rent nucle ic acid ampli ficat ion test when posit laice resul ts occur , if indic ated. Not Available [facility] (Centralized Electronic Ordering - All Locations) Patient Can Go To The Location Of Their Choice, [id number] 2023 15:04:03 01/07/20 01/06/2023 [facility] results Patie nt Name: DEVONTE ARROYO nt : 003 (Age: 17) Lab Acces bisi #: [id number] Colle ction Date: 023 Acces bisi Date: 023 Sign Out Date: 2022 Tissu e Sourc e: 1: THINP REP REAGENT TENDER HELPER PAP TEST, CERVI YARIEL: Final Diagn osis: NEGAT LACIE FOR INTRA EPITH ELIAL LESIO N OR MALIG CALLIE . Satis facto ry for evalu ation . Endoc ervic al/tr ansfo rmati on zone prese nt. Clini yariel Histo ry: Date of Last Menst rual Perio d: 12-23 Menst rual Histo ry: not avail able Contr acept lacie Histo ry: not avail able Ancil rosalie Testi ng: HPV (ASCU S) Chlam ydia/ GC Case image d by the ThinP rep Imagi ng Syste m with nel ramirezr cira white or kyrie galvan. Perfo rmed at [facility] ate Refer [facility], [address] [place] Clini yariel Histo ry (othe r): Z01.4 19 Z11.3 LPS 12-31 NEGAT LACIE ROUTI NE SCREE N Phone #: [phone], On-Ca ll Patho logis t: [id number] Not Available [facility] (Centralized Electronic Ordering - All Locations) Patient Can Go To The Location Of Their Choice, [id number] 01/23/2023 16:12:16 01/13/20 24 01/14/2024 IGP, CTNG, RFX APTIM A HPV ASCU chlamydia, nuc. acid amp Negati ve negati ve Not Available [facility] ([facility]) [address] [facility], [place], [address], 01/15/2024 12:12:40 01/13/20 24 01/14/2024 IGP, CTNG, RFX APTIM A HPV ASCU gonococcus, nuc. acid amp Negati ve negati ve Not Available [facility] ([facility]) [address] [place], [address], 01/15/2024 12:12:40 01/13/20 24 01/15/2024 IGP, CTNG, RFX APTIM A HPV ASCU diagnosis: Howard t NEGHEYDI LACIE FOR INTRA EPITH ELIAL LESIO N OR NING LEDESMA . Not Available [facility] ([facility]) [address] [place], [address], 01/15/2024 12:12:40 01/13/20 24 01/15/2024 IGP, CTNG, RFX APTIM A HPV ASCU specimen adequacy: Howard t Satis facto ry for evalu ation . Endoc ervic al and/o r squam ous metap lasti c cells (endo cervi yariel compo nent) are prese nt. Not Available [facility] ([facility]) [address] [facility], [place], [address], 01/15/2024 12:12:40 01/13/20 24 01/15/2024 IGP, CTNG, RFX APTIM A HPV ASCU clinician provided ICD10: Howard hinds Z01.4 19 Not Available [facility] ([facility]) [address] [place], [address], 01/15/2024 12:12:40 01/13/20 24 01/15/2024 IGP, CTNG, RFX APTIM A HPV ASCU performed by: Howard Deutsch, Cytot alberto hinds (ASCP ) Not Available [facility] ([facility]) [address] [place], [address], 01/15/2024 12:12:40 01/13/20 24 01/15/2024 IGP, CTNG, RFX APTIM A HPV ASCU . . Not Available [facility] ([facility]) [address] [place], [address], 01/15/2024 12:12:40 01/13/20 24 01/15/2024 IGP, CTNG, RFX APTIM A HPV ASCU note: Commen t The Pap smear is a scree kyle test desig manas to aid in the detec tion of aureliano ligna nt and malig nant condi tions of the uteri ne cervi x. It is not a diagn ostic proce dure and shoul d not be used as the sole means of detec ting cervi yariel cance r. Both false -posi tive and false -nega tive repor ts do occur . Not Available [facility] ([facility]) [address] [place], [address], 01/15/2024 12:12:40 01/13/2001/15/2024 IGP, CTNG, RFX APTIM A HPV ASCU test methodology: Commen t This liqui d based ThinP rep(R ) pap test was scree manas with the use of an image guide d syste m. Not Available [facility] ([facility]) [address] [facility], [place], [address], 01/15/2024 12:12:40 01/13/2001/15/2024 IGP, CTNG, RFX APTIM A HPV ASCU . Commen t The HPV DNA refle x crite kaitlynn were not met with this speci men resul t there fore, no HPV testi ng was perfo rmed. Not Available [facility] ([facility]) [address] [place], [address], 01/15/2024 12:12:40 01/24/2001/24/2025 IGP, CTNG, RFX APTIM A HPV ASCU chlamydia, nuc. acid amp Negati ve negati ve Not Available [facility] ([facility]) [address] [place], [address], 01/25/2025 14:16:18 01/24/2001/24/2025 IGP, CTNG, RFX APTIM A HPV ASCU gonococcus, nuc. acid amp Negati ve negati ve Not Available [facility] ([facility]) [address] [place], [address], 01/25/2025 14:16:18 01/24/2001/25/2025 IGP, CTNG, RFX APTIM A HPV ASCU diagnosis: Howard MEDELLIN FOR INTRA EPITH ELIAL LESIO N OR NING LEDESMA . Not Available [facility] ([facility]) [address] [place], [address], 01/25/2025 14:16:18 01/24/2001/25/2025 IGP, CTNG, RFX APTIM A HPV ASCU specimen adequacy: Howard hinds Satis factcandelaria kelsey for evalu ation . Not Available [facility] ([facility]) [address] [place], [address], 01/25/2025 14:16:18 01/24/2001/25/2025 IGP, CTNG, RFX APTIM A HPV ASCU clinician provided ICD10: Howard hinds Z01.4 19 Not Available [facility] ([facility]) [address] [place], [address], 01/25/2025 14:16:18 01/24/2001/25/2025 IGP, CTNG, RFX APTIM A HPV ASCU performed by: Howard Miller , Cytol ogist (ASCP ) Not Available [facility] ([facility]) [address] [place], [address], 01/25/2025 14:16:18 01/24/2001/25/2025 IGP, CTNG, RFX APTIM A HPV ASCU . . Not Available [facility] ([facility]) [address] [place], [address], 01/25/2025 14:16:18 01/24/20 25 01/25/2025 IGP, CTNG, RFX APTIM A HPV ASCU note: Commen t The Pap smear is a scree kyle test desangelika jaquezd to aid in the detec tion of aureliano ligna nt and malig nant condi tions of the uteri ne cervi x. It is not a diagn ostic proce dure and shoul d not be used as the sole means of detec ting cervi yariel cance r. Both false -posi tive and false -nega tive repor ts do occur . Not Available [facility] ([facility]) [address] [place], [address], 01/25/2025 14:16:18 01/24/20 25 01/25/2025 IGP, CTNG, RFX APTIM A HPV ASCU test methodology: Commen t This liqui d based ThinP rep(R ) pap test was scree manas with the use of an image guide d syste m. Not Available [facility] ([facility]) [address] [facility], [place], [address], 01/25/2025 14:16:18 01/24/2001/25/2025 IGP, CTNG, RFX APTIM A HPV ASCU . Commen t The HPV DNA refle x crite kaitlynn were not met with this speci men resul t there fore, no HPV testi ng was perfo rmed. Not Available [facility] ([facility]) [address] [place], [address], 01/25/2025 14:16:18 Result Notes None recorded. Medical Equipment None Reported. Allergies No known drug allergies Medications Name Sig Start Date Stop Date Status Note LastModified by Organization Details LastModified Time Aviane 0.1 mg-20 mcg tablet Take 1 tablet every day by oral route for 84 days. 2024 active Not Available Not Available Not Avai lable albuterol sulfate HFA 90 mcg/actuati on aerosol inhaler 2 PUFFS INHALED EVERY 4 HOURS NEEDED FOR SHORTNESS OF BREATH OR WHEEZING OR COUGHING FOR 30 DAYS active Not Available Not Available No t Available methylpheni date ER 18 mg tablet,exte nded release 24 hr TAKE 1 TABLET BY MOUTH EVERY DAY IN THE MORNING 01/12 completed Not Available Not Available Not Available Pulmicort Flexhaler 90 mcg/actuati on breath activated INHALE 1 PUFF EVERY 12 HOURS FOR 30 DAYS active Not Available Not Available No t Available [facility] spacer FOR USE WITH METERED-D OSE INHALER active Not Available Not Available No t Available Vitals Date Recorded Body weight Body mass index (BMI) Body mass index (BMI) [Percentile] Per age and sex Body height Body temperature Heart rate Systolic And Diastolic Provider Name and Address Organization Details Last Updated DateTime 2 20470.2 5 g 24.2 kg/m2 75 % 173.99 cm 98.7 [degF] 80 /min 139/85 mm[Hg] Blanca Mckeon in [facility], 2 13:42:59 Date Recorded Body weight Body mass index (BMI) Body mass index (BMI) [Percentile] Per age and sex Body height Heart rate Body temperature Systolic And Diastolic Provider Name and Address Organization Details Last Updated DateTime 3 54876.4 6 g 24.8 kg/m2 77 % 173.99 cm 82 /min 98.4 [degF] 142/85 mm[Hg] Blanca Mckeon in [facility], 3 11:03:35 Date Recorded Body height Body mass index (BMI) Body weight Heart rate Systolic And Diastolic Provider Name and Address Organization Details Last Updated DateTime 01/13/2024 171.45 cm 27.9 kg/m2 19639.78 g 65 /min 133/70 mm[Hg] lamonte Mckeon in [facility], 01/13/2024 10:57:56 Date Recorded Body weight Body mass index (BMI) Body height Heart rate Systolic And Diastolic Provider Name and Address Organization Details Last Updated DateTime 01/23/2025 21746.7 g 29.1 kg/m2 175.26 cm 85 /min 120/79 mm[Hg] Blanca Mckeon in [facility], 01/23/2025 10:41:08 Social History Question Answer Notes LastModified by Organizat ion Details LastModified Time Tobacco Smoking Status Never Smoker Blanca brennan [place] - [facility], 12/31/2021 13:49:36 How Many Years Have You [...] Or The Highest Degree You Have Received? 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 Information not available 01/23/2025 What is your exercise level? Moderate Information not available 12/31/2021 Mental Status Question Answer Note LastModified by Organization D etails LastModified Time Do you feel stressed (tense, restless, nervous, or anxious, or unable to sleep at night)? [id number] Information not available 01/06/2023 Family History Relationship [...] for MyRisk panel N Autoimmune Condition N Depression N Lung Disease N Defects or Inherited Disease N History of Ovarian Cancer N BRCA testing in past N Anxiety Disorder N Arthritis N Infertility N History of Cancer N Endometriosis N Kidney or Bladder Problems N Thyroid Problems N GI Problems N Anemia N [...] Blanca Meczywor null, [place] - [facility], 01/23/2025 10:42:06 Tdap 4 completed Blanca [...] [facility], 01/23/2025 10:42:06 Hep A, ped/adol, 2 dose 7 completed Blanca Meczywor null, [place] [facility], 01/23/2025 10:42:06 Hep A, ped/adol, 2 dose 8 completed Blanca Meczywor null, [place] [facility], 01/23/2025 10:42:06 meningococcal MCV4P 4 completed Blanca Meczywor null, [place] - [facility], 01/23/2025 10:42:06 meningococcal MCV4P 9 completed Blanca Meczywor null, [place] - [facility], 01/23/2025 10:42:06 Influenza, split virus, quadrivalent, PF 8 completed Blanca Meczywor null, [place] - [facility], 01/23/2025 10:42:06 Influenza, split virus, quadrivalent, PF 0 completed Blanca Meczywor null, [place] [facility], 01/23/2025 10:42:06 Influenza, split virus, quadrivalent, PF 6 completed Blanca Meczywor null, [place] - [facility], 01/23/2025 10:42:06 Influenza, split virus, quadrivalent, PF 1 completed Blanca Meczywor null, [place] - [facility], 01/23/2025 10:42:06 Past Encounters Encounter ID Performer Location Encounter Start Date Encounter Closed Date Diagnosis/Indication Diagnosis SNOMED-CT Code Diagnosis ICD10 Code Diagnosis Note [id number] MD GARTH Addison MD [address] [facility] [place] [address] 12/31/2021 13:35:05 12/31/2021 15:25:14 Specialized medical examination 40853399 Z01.419 Venereal d isease screening 375785625 Z11.3 [id number] MD GARTH Addison MD [address] [facility] [place] [address] 01/06/2023 10:59:57 01/06/2023 14:09:35 Specialized medical examination 89468956 Z01.419 Venereal d isease screening 231045601 Z11.3 [id number] MD GARTH Addison MD [address] [facility] [address] [place] [address] 01/13/2024 10:53:28 01/13/2024 12:02:50 Specialized medical examination 82588380 Z01.419 Venereal d isease screening 382502254 Z11.3 [id number] MD GARTH Addison MD [address] [facility] [address] [place] [address] 01/23/2025 10:36:51 01/23/2025 15:27:20 Specialized medical examination 20764083 Z01.419 Venereal d isease screening 157664767 Z11.3 Health Concerns Section Related Observation LastModified by Organization Detai ls LastModified Time None Recorded Concern Status LastModified by Organization Details LastModified Time None Recorded Advance Directives Directive None Recorded Payers Insurance Date Sequence Insurance Name Policy Number Policy Dill Covered Member ID Dill Member ID Guarantor Name 01/20/2025 1 [facility] [place] [id number] Adali Weiss [id number] Prudence Weiss OBGyn Episode No OBEpisode recorded.
== END 2025-02-27 14:05 | disposition home or self-care (01) ==
LOC: HO.HMCFM 13:40
PROVIDERS: Visit Provider Physician Assistant Medical
DX: J45.30 Mild persistent asthma, uncomplicated (principal)

== ENCOUNTER 2025-04-24 15:21 | Outpatient (AMB) | payer BC, SELFPAY ==
--- NOTE | 2025-04-24 15:24 | MHC.PC.OV ---
Vital Signs 04/24/25 15:26 Height 5 ft 10 in Weight 199 lb 2 oz BMI 28.6 BP 102/68 Blood Pressure Location Lt brachial Position Sitting Pulse 107 H Pulse Source Pulse Oximeter Temp 98.4 F Temp Source Temporal Artery Scan Pulse Oximetry (%) 98 Oxygen Delivery Method Room Air Intake Visit Reasons: Asthma med check Intake Note: Prudence presents in the office today for a follow up to her asthma. Allergies No Known Allergies Allergy (Verified 04/24/25 15:26) Medication List - Last Reconciled 04/24/25 by ALICIA Kathleen albuterol sulfate 90 mcg/actuation 2 inhalations inhalation .every 4 hours PRN 30 days budesonide 180 mcg/actuation (Pulmicort Flexhaler) 1 inh inhalation BID levonorgestrel-ethinyl estrad 0.1-20 mg-mcg (Vienva) 1 tab PO DAILY Tobacco use date assessed: 04/24/25 Dental Screening Dental Screen Date: 04/24/25 Did you have a dental visit in the last 12 months?: Yes Did you have a dental problem in the last 6 months where you did not have access to dental care?: No Was dental information given to patient?: Patient has dentist HPI HPI Comments History of Present Illness Details 19-year-old female with a past medical history of asthma and ADHD presenting for an asthma medication check. Her PFT was suggestive of asthma. Chest x-ray 12/20/2024 normal. She initially reported using her albuterol inhaler 10-15 times per week for symptoms. Cough is triggered by cigarette smoke, physical activity and laughing. No interval ER visits or systemic steroids. Taking Pulmicort 180 mcg 1 puff twice daily. Endorses reduced albuterol requirement. She is using this about once per week now. Denies nocturnal awakenings. Denies side effects on the medicine. She is taking a multivitamin that contains calcium and vitamin-D. Allergy season is not bothering her. ROS: Constitutional: No unexplained weight loss, fever, chills, fatigue Respiratory: Denies cough, wheezing, shortness of breath Cardiovascular: No chest pain, chest pressure or chest discomfort. No palpitations or pedal edema. Physical exam: Constitutional: Alert, in no distress. Ears: TMs normal, canals clear Neck: No lymphadenopathy Throat: No erythema, exudates or edema Mouth/throat: Normal Respiratory: Clear to auscultation. Cardiovascular: S1 S2 regular. No murmurs. 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 [employer] Current occupational exposures/hazards: No Cognitive needs: No Hearing needs: No Vision needs: No Questionnaire Thrive Questionnaire Date Thrive assessed: 12/08/24 I am a: Patient What is your living situation today?: I have a steady place to live Within the past 12 months, did the food you bought not last and you didn't have the money to get more?: Never true Within the past 12 months, did you worry whether your food would run out before you got money to buy more?: Never true Do you have trouble paying for medicines?: No Do you have trouble getting transportation to medical appointments?: No Do you have trouble paying your heating and electricity bill?: No Do you have trouble taking care of your child, family member or friend?: No Do you have trouble with day-to-day activities such as bathing, preparing meals, shopping, managing finances, etc.?: No Are you currently unemployed and looking for a job?: No Are you interested in more education?: Yes Please select the resources that you would like help with: None Currently or been in a relationship where the following occur: No concerns reported THRIVE Score: 0 EDIN-7 AMB Questionnaire EDIN-7 Date EDIN - 7 assessed: 12/15/24 Source: Developed by Drs. Sukhjinder Woods, Nelda Mcneill, Griffin Solis and colleagues, with an educational daniela from [employer]. Physical exam (Primary Care) Vital Signs: Last Vital Signs Temp 98.4 F 04/24/25 15:26 Pulse 107 H 04/24/25 15:26 BP 102/68 04/24/25 15:26 Pulse Ox 98 04/24/25 15:26 Oxygen Delivery Method Room Air 04/24/25 15:26 BMI result Body Mass Index 28.6 Tobacco/Smoking Status: Tobacco use Status Tobacco use date assessed 04/24/25 04/24/25 15:29 Patient Tobacco Use Status Never used Tobacco 04/24/25 15:26 e-Cigarette/Vaping Use Never Used 04/24/25 15:26 Thrive Assessment: Date of Thrive Assessment Date Thrive assessed 12/08/24 04/24/25 15:24 Currently or been in a relationship where the following occur: No concerns reported Coding Level of Care Code Est Pt Level 3 (49996) Complex EM visit Add On G2211 Diagnoses Mild persistent asthma without complication J45.30 Asthma complication type: uncomplicated Assessment & Plan Assessment & Plan (1) Asthma, mild persistent: Code(s): J45.30 - Mild persistent asthma, uncomplicated Category: Medical Qualifiers: Asthma complication type: uncomplicated Qualified Code(s): J45.30 - Mild persistent asthma, uncomplicated Plan: Asthma is controlled now. Continue Pulmicort 180 mcg twice daily. She will be due for a physical in December. If she maintains control over viral season we will consider decreasing the dose of Pulmicort at her next appointment. Gargle and rinse mouth after use. We discussed side effects of inhaled corticosteroids. Recommended supplementation with a multivitamin that contains calcium and vitamin-D. Continue albuterol 2 puffs every 4 hours as needed for cough, wheezing and shortness of breath. Influenza vaccine administered today. Plan Follow up in December 2025 for a physical exam. Orders: Orders Influenza [id number] Immunization Today Z23 - Encounter for immunization Medications: New Fluarix [id number] (PF) (flu vac ts (6mos up)-PF) 0.5 mL IM ONCE 0.5 mL 0RF NS Z23 - Encounter for immunization Refilled budesonide 180 mcg/actuation (Pulmicort Flexhaler) 1 inh inhalation BID 1 ea 5RF
[2025-04-24 15:26] VITALS: BP 102/68; PULSE 107; TEMP 36.9; O2SAT 98; BMI 28.6
== END 2025-04-24 15:52 | disposition home or self-care (01) ==
LOC: HO.HMCFM 15:22
PROVIDERS: PCP Physician Assistant Medical; Visit Provider Physician Assistant Medical
DX: Z23 Encounter for immunization (principal)

== ENCOUNTER → 2025-04-24 15:21 | Outpatient (BNVA) | payer BC, SELFPAY | PROVIDERS: PCP Physician Assistant Medical; Visit Provider Physician Assistant Medical | DX: J45.30 Mild persistent asthma, uncomplicated (principal); Z23 Encounter for immunization | CPT/HCPCS: 90471; 90656 ==